=== PATIENT | female | born 1975 ===

== ENCOUNTER 2021-02-23 14:47 | Emergency (ER) | payer OTHER ==
[2021-02-23] MEDS ORDERED: ACETAMINOPHEN 325 MG TAB PO ONE (17:20)
[2021-02-23] MEDS: ACETAMINOPHEN W/CODEINE 300-30 MG TAB PO ONE ×2 (17:56→17:57)
--- NOTE | 2021-02-23 17:58 | XRay Report ---
CHEST 2 VIEWS INDICATION / CLINICAL INFORMATION: cough, fever. COMPARISON: None available. FINDINGS: SUPPORT DEVICES: None. HEART / MEDIASTINUM: No significant abnormality. LUNGS / PLEURA: No focal airspace disease. There is mild peribronchial thickening. No pneumothorax. ADDITIONAL FINDINGS: No significant additional findings. IMPRESSION: 1. Mild peribronchial thickening can be seen with small airways disease. No focal airspace disease. Signer Name: Darrell Farmer MD Signed: 02/23/2021 5:53 PM Workstation Name: [employer]
--- NOTE | 2021-02-23 18:52 | Emergency Department Report ---
- General Chief Complaint: Fever Stated Complaint: Fever, Bodyaches Time Seen by Provider: 02/23/21 17:16 Source: patient Mode of arrival: Ambulatory Limitations: No Limitations - History of Present Illness Initial Comments: Patient is a 45-year-old female presents emergency room planes of URI symptoms that began yesterday. She has associated fever, chills, generalized body aches, cough. She denies any chest pain, shortness of breath, vomiting, diarrhea, ear pain, sore throat. Past medical history of CHF. Allergy to diphenhydramine, iodine, penicillins. - Related Data Previous Rx's Medication Instructions Recorded Last Taken Type Acetaminophen/Codeine [Tylenol 1 tab PO Q6H PRN #12 tab 02/23/21 Unknown Rx /Codeine # 3 tab] Azithromycin [Zithromax TAB] 250 mg PO QDAY 5 Days #6 tablet 02/23/21 Unknown Rx Benzonatate [Tessalon Perles] 100 mg PO Q8HR PRN #12 capsule 02/23/21 Unknown Rx Allergies Allergy/AdvReac Type Severity Reaction Status Date / Time diphenhydramine Allergy Anaphylaxis Verified 02/23/21 15:43 [From Benadryl] iodine Allergy Anaphylaxis Verified 02/23/21 15:42 shellfish derived Allergy Anaphylaxis Verified 02/23/21 15:43 ED Review of Systems ROS: Stated complaint: Fever, Bodyaches Other details as noted in HPI Comment: All other systems reviewed and negative ED Past Medical Hx - Past Medical History Previous Medical History?: Yes Hx Congestive Heart Failure: Yes Additional medical history: Afib - Surgical History Past Surgical History?: Yes Additional Surgical History: cardiac ablation - Medications Home Medications: Home Medications Medication Instructions Recorded Confirmed Last Taken Type Acetaminophen/Codeine [Tylenol 1 tab PO Q6H PRN #12 tab 02/23/21 Unknown Rx /Codeine # 3 tab] Azithromycin [Zithromax TAB] 250 mg PO QDAY 5 Days #6 tablet 02/23/21 Unknown Rx Benzonatate [Tessalon Perles] 100 mg PO Q8HR PRN #12 capsule 02/23/21 Unknown Rx ED Physical Exam - General Limitations: No Limitations General appearance: alert, in no apparent distress - Head Head exam: Present: atraumatic, normocephalic - Eye Eye exam: Present: normal appearance - ENT ENT exam: Present: mucous membranes moist - Respiratory Respiratory exam: Present: normal lung sounds bilaterally. Absent: respiratory distress, wheezes, rales, rhonchi, stridor, chest wall tenderness, accessory m uscle use, decreased breath sounds, prolonged expiratory - Cardiovascular Cardiovascular Exam: Present: regular rate, normal rhythm, normal heart sounds. Absent: systolic murmur, diastolic murmur, rubs - Neurological Exam Neurological exam: Present: alert, oriented X3 - Psychiatric Psychiatric exam: Present: normal affect, normal mood - Skin Skin exam: Present: warm, dry, intact ED Course Vital Signs 02/23/21 15:36 Temperature 99.4 F Pulse Rate 104 H Blood Pressure 148/99 O2 Sat by Pulse 100 Oximetry ED Medical Decision Making - Radiology Data Radiology results: report reviewed Ordering Physician: KENNETH HACKETT Date of Service: 02/23/21 Procedure(s): XR chest routine 2V Accession Number(s): [id number] cc: KENNETH HACKETT Fluoro Time In Minutes: CHEST 2 VIEWS INDICATION / CLINICAL INFORMATION: cough, fever. COMPARISON: None available. FINDINGS: SUPPORT DEVICES: None. HEART / MEDIASTINUM: No significant abnormality. LUNGS / PLEURA: No focal airspace disease. There is mild peribronchial thickening. No pneumothorax. ADDITIONAL FINDINGS: No significant additional findings. IMPRESSION: 1. Mild peribronchial thickening can be seen with small airways disease. No focal airspace disease. Signer Name: Darrell Farmer MD Signed: 02/23/2021 5:53 PM Workstation Name: [email or web address] Transcribed By: DB Dictated By: DARRELL FARMER MD Electronically Authenticated By: DARRELL FARMER MD Signed Date/Time: 02/23/211752 DD/ 51 TD/TT: - Medical Decision Making Patient is a 45-year-old female presents emergency room planes of URI symptoms that began yesterday. She has associated fever, chills, generalized body aches, cough. She denies any chest pain, shortness of breath, vomiting, diarrhea, ear pain, sore throat. Past medical history of CHF. Allergy to diphenhydramine, iodine, penicillins. Vitals are stable, no hypoxia, no fever. Breath sounds are clear bilaterally. Rapid flu is negative. Chest x-ray1. Mild peribronchial thickening can be seen with small airways disease. No focal airspace disease. Given patient's history, will cover for early bronchopneumonia. Discussed the importance of outpatient follow-up and discussed return precautions. Advised patient Please take medication as prescribed. Increase your fluid intake. Follow-up with a primary care doctor. Return to emergency room for any new or worsening symptoms. Recommend outpatient COVID-19 testing and if positive will need to self quarantine for 10 days from onset of symptoms. Critical care attestation.: If time is entered above; I have spent that time in minutes in the direct care of this critically ill patient, excluding procedure time. ED Disposition Clinical Impression: Peribronchial pneumonia, Suspected COVID-19 virus infection URI (upper respiratory infection) Qualifiers: URI type: unspecified URI Qualified Code(s): J06.9 - Acute upper respiratory infection, unspecified Disposition: HOME / SELF CARE / HOMELESS Is pt being admited?: No Does the pt Need Aspirin: No Condition: Stable Instructions: Community-Acquired Pneumonia, Adult, [id number], Bacterial Pneumonia (ED) Additional Instructions: Please take medication as prescribed. Increase your fluid intake. Follow-up with a primary care doctor. Return to emergency room for any new or worsening symptoms. Recommend outpatient COVID-19 testing and if positive will need to self quarantine for 10 days from onset of symptoms. Prescriptions: Benzonatate [Tessalon Perles] 100 mg PO Q8HR PRN #12 capsule PRN Reason: cough Acetaminophen/Codeine [Tylenol /Codeine # 3 tab] 1 tab PO Q6H PRN #12 tab PRN Reason: pain Azithromycin [Zithromax TAB] 250 mg PO QDAY 5 Days #6 tablet Referrals: NASH MARTÍNEZ [Primary Care Provider] - 3-5 Days Forms: Work/School Release Form(ED) Time of Disposition: 18:50 Print Language: [place]
[2021-02-23 22:27] VITALS: BP 130/84
== END 2021-02-23 19:43 | disposition home or self-care (01) ==
LOC: ED 14:47
DX: J06.9 Acute upper respiratory infection, unspecified (principal); J18.9 Pneumonia, unspecified organism; Z20.822 Contact with and (suspected) exposure to COVID-19; I50.9 Heart failure, unspecified; Z98.890 Other specified postprocedural states; Z88.8 Allergy status to other drugs, medicaments and biological substances; Z88.6 Allergy status to analgesic agent; Z91.013 Allergy to seafood; Z79.899 Other long term (current) drug therapy
CPT/HCPCS: 71046; 87400; 99283